=== PATIENT | female | born 1990 | race Caucasian/White ===

== ENCOUNTER 2019-06-04 12:48 | Emergency (ER) | payer MEDICAID ==
--- NOTE | 2019-06-04 13:05 | Emergency Department Record ---
History of Present Illness - General Chief Complaint: Chest Pain Stated Complaint: CHEST PAIN Time Seen by Provider: 06/04/19 12:59 Source: Patient Mode of Arrival: Ambulatory Limitations: No limitations - History of Present Illness Initial Comments: The patient is here due to R upper Cp for one day. The onset was around 7pm last evening. The patient states she was at home when she noticed sharp stabbing R upper chest pain that intermittently radiates to the R upper back. She does feels mildly SOB at times with it but has had no cough, L sided CP, fever, or sputum production. The patient states she has had similar pain in the past but not quite like this. She does state that deep breaths and chest rotation do increase the pain. The patient has no cardiac risk factors except for a hx of < 1/2 ppd of tobacco use off and on for 10 years and she is not on OCP's. The patient's LMP was 2 weeks ago. MD Complaint: Chest pain Onset/Timin -: Days(s) Onset: During rest Pain Location: Substernal Pain Radiation: Back Severity: Moderate Severity scale (1-10): 8 Quality: Sharp Consistency: Constant Improves With: Nothing Worsens With: Nothing Treatments Prior to Arrival: None - Related Data Previous Rx's Medication Instructions Recorded Naproxen [Naprosyn] 250 mg PO BID #14 tablet 06/04/19 Allergies Allergy/AdvReac Type Severity Reaction Status Date / Time Penicillins Allergy RASH Verified 06/04/19 12:57 Travel Screening - Travel/Exposure Within Last 30 Days Have you traveled within the last 30 days?: No Review of Systems Constitutional: Denies: Chills, Fever Eyes: Denies: Eye discharge ENT: Denies: Congestion Respiratory: Denies: Cough, Dyspnea Cardiovascular: Reports: Chest pain. Denies: Arrhythmia, Dyspnea on exertion Endocrine: Denies: Fatigue Gastrointestinal: Denies: Abdominal pain Genitourinary: Denies: Dysuria Musculoskeletal: Denies: Arthralgia Skin: Denies: Bruising Past Medical History - SOCIAL HISTORY Smoking Status: Current every day smoker Alcohol Use: None Drug Use: None - RESPIRATORY Hx Respiratory Disorders: No - CARDIOVASCULAR Hx Cardio Disorders: No - NEURO Hx Neuro Disorders: No - GI Hx GI Disorders: No - Hx Genitourinary Disorders: No Comment:: PCOS - ENDOCRINE Hx Endocrine Disorders: No - MUSCULOSKELETAL Hx Musculoskeletal Disorders: No - PSYCH Hx Psych Problems: No - HEMATOLOGY/ONCOLOGY Hx Hematology/Oncology Disorders: No Family Medical History Any Significant Family History?: No Physical Exam - General General Appearance: Alert, Oriented x3, Cooperative, No acute distress - Head Head exam: Atraumatic, Normocephalic, Normal inspection - Eye Eye exam: Normal appearance, PERRL - ENT Throat exam: Normal inspection. negative: Tonsillar erythema, Tonsillar exudate - Neck Neck exam: Normal inspection, Full ROM. negative: Tenderness - Respiratory Respiratory exam: Normal lung sounds bilaterally, Chest wall tenderness (The CP is 100% reproducible with palpation to the R upper T3-4 costochondral joints. ). negative: Respiratory distress - Cardiovascular Cardiovascular Exam: Regular rate, Normal rhythm, Normal heart sounds - GI/Abdominal GI/Abdominal exam: Soft, Normal bowel sounds. negative: Tenderness - Extremities Extremities exam: Normal inspection, Full ROM, Normal capillary refill. negative: Tenderness Image of Full Body: 1 - Area of pain and reproducible tenderness. Course Vital Signs 06/04/19 12:49 Temperature 97.7 F Pulse Rate 62 Respiratory 20 Rate Blood Pressure 140/88 Pulse Ox 99 - Reevaluation(s) Reevaluation #1: The patient is doing very well at this time. She is basically pain free at this time and only has the pain with deep breaths or chest twisting to the R. I strongly doubt any serious cardiac or pulmonary etiology of the pain. The patient is young and healthy and does not have any significant cardiac risk factors. The pain is clearly reproducible and she has a Heart Score of 0 so I do not believe she needs an inpatient cardiac evaluation. I also doubt she has a PE due to the fact she has no risk factors and she is Wells Criteria Low Prob and PERC Neg. Additionally she has a neg D-dimer. She is to take Naprosyn for pain and see a family doctor later this week for recheck. 06/04/19 14:14 Medical Decision Making - Data Complexity MDM Data: Labs Ordered and/or Reviewed, X-Ray Ordered and/or Reviewed, EKG Ordered and/or Reviewed - Lab Data Result diagrams: 06/04/19 13:15 06/04/19 13:15 - EKG Data -: EKG Interpreted by Me EKG: No Acute Changes, Normal EKG - Radiology Data Radiology results: Report reviewed (CXR: Neg.) Disposition Disposition: Discharge Clinical Impression: Chest wall pain Disposition: Home, Self-Care Condition: (2) Stable Instructions: Chest Wall Pain (ED) Additional Instructions: Please stop smoking and take the Naprosyn for pain. Please see your family d octor for recheck later this week. Return to the ER for any worsening symptoms, pain, fever, L sided chest pain or any trouble breathing. Prescriptions: Naproxen [Naprosyn] 250 mg PO BID #14 tablet Forms: Patient Portal Access Time of Disposition: 14:19 Quality - Quality Measures Quality Measures: N/A - Blood Pressure Screening View Details: Yes Does Patient Have Any of the Following: No Blood Pressure Classification: Hypertensive Reading Systolic Measurement: 122 Diastolic Measurement: 90 Screening for High Blood Pressure: < First Hypertensive BP, F/U Documented > [G8950] First Hypertensive Follow-up Interventions: Referral to alternative/primary care provider.
[2019-06-04] MEDS ORDERED: KETOROLAC 30 MG/ML VIAL IVP ONE (13:11)
[2019-06-04 13:26] LABS: ABSOLUTE NEUTROPHIL COUNT 3.49; HEMATOCRIT 38.9 % (35.0-47.0); HEMOGLOBIN 13.1 gm/dl (11.6-16.0); MEAN CELL VOLUME 94.4 fl (81-97); MEAN CORPUSCULAR HEMOGLOBIN 31.8 pg (27-33); MEAN CORPUSCULAR HGB CONC 33.7 g/dl (32-36); MEAN PLATELET VOLUME 9.9 fl (7.4-10.4); PLATELET COUNT 250 K/uL (130-400); RED BLOOD COUNT 4.12 M/uL (3.80-5.40); RED CELL DISTRIBUTION WIDTH 12.3 % (11.5-14.5); WHITE BLOOD COUNT W/O DIFF 6.4 K/uL (4.2-12.2)
[2019-06-04 13:37] LABS: PLATELET ESTIMATE NORMAL (NORMAL)
[2019-06-04 13:38] LABS: BLOOD UREA NITROGEN 10 mg/dL (6-20); CREATININE 0.6 mg/dL (0.5-0.9); EST GLOMERULAR FILTRATION RATE > 60 mL/min
[2019-06-04 13:39] LABS: TOTAL PROTEIN 6.5 g/dL (6.6-8.7)
[2019-06-04 13:41] LABS: GLUCOSE,RANDOM 87 mg/dL (74-109)
[2019-06-04 13:43] LABS: ALB/GLOB RATIO 1.7 (1.1-1.8); ALBUMIN 4.1 g/dL (4.0-5.0); ALT/SGPT 10 U/L (<33); AST/SGOT 11 U/L (10.0-35.0)
[2019-06-04 13:44] LABS: ALKALINE PHOSPHATASE 65 U/L (35-104)
--- NOTE | 2019-06-05 09:32 | RADIOLOGY REPORT ---
EXAM: CHEST, TWO VIEWS HISTORY: CHEST PAIN RADIATING INTO BACK. TECHNIQUE: Upright PA and lateral views of the chest were obtained. Comparison: None. FINDINGS: The heart is not enlarged. No pulmonary venous hypertension is seen. The lungs and pleural spaces are clear. No acute osseous abnormality. Mild levoconvex curvature of the upper thoracic spine. IMPRESSION: 1. NO RADIOGRAPHIC EVIDENCE OF ACUTE CARDIOPULMONARY DISEASE. 2. MILD LEVOCONVEX CURVATURE OF THE UPPER THORACIC SPINE. JOB NUMBER: [id number] [facility]
== END 2019-06-04 14:32 | disposition home or self-care (01) ==
LOC: ER 12:48
DX: R07.89 Other chest pain (principal); F17.210 Nicotine dependence, cigarettes, uncomplicated
CPT/HCPCS: 71046; 80053; 84484; 85027; 85379; 93005; 93010; 96374; 99284; 99285; J1885

== ENCOUNTER 2019-12-13 16:51 | Emergency (ER) | payer MEDICAID ==
--- NOTE | 2019-12-13 17:03 | Emergency Department Record ---
History of Present Illness - General Chief Complaint: Abdominal Pain Stated Complaint: RT SIDE PELVIC PAIN Time Seen by Provider: 12/13/19 17:02 Source: Patient Mode of Arrival: Ambulatory Limitations: No limitations - History of Present Illness Initial Comments: The patient is here due to pelvic pain on the R side for 2 weeks. The pain did get worse today and the patient did have a positive home test a few days ago. There has been no vomiting, fever, dysuria, anorxia, vaginal discharge or bleeding. The patient has been twice with 2 children. MD Complaint: Abdominal pain Onset/Timin -: Week(s) - Related Data Previous Rx's Medication Instructions Recorded Metoclopramide HCl [Reglan] 10 mg PO TID #20 tablet 12/13/19 Allergies Allergy/AdvReac Type Severity Reaction Status Date / Time Penicillins Allergy RASH Verified 12/13/19 17:03 Review of Systems Constitutional: Denies: Chills, Fever Eyes: Denies: Eye discharge ENT: Denies: Congestion Respiratory: Denies: Cough, Dyspnea Past Medical History - SOCIAL HISTORY Smoking Status: Current every day smoker Drug Use: None - RESPIRATORY Hx Respiratory Disorders: No - CARDIOVASCULAR Hx Cardio Disorders: No - NEURO Hx Neuro Disorders: No - GI Hx GI Disorders: No - Hx Genitourinary Disorders: No Comment:: PCOS - ENDOCRINE Hx Endocrine Disorders: No - MUSCULOSKELETAL Hx Musculoskeletal Disorders: No - PSYCH Hx Psych Problems: No - HEMATOLOGY/ONCOLOGY Hx Hematology/Oncology Disorders: No Physical Exam - General General Appearance: Alert, Oriented x3, Cooperative, No acute distress - Head Head exam: Atraumatic, Normocephalic, Normal inspection - Eye Eye exam: Normal appearance, PERRL - Neck Neck exam: Normal inspection, Full ROM. negative: Tenderness - Respiratory Respiratory exam: Normal lung sounds bilaterally. negative: Respiratory distress - Cardiovascular Cardiovascular Exam: Regular rate, Normal rhythm, Normal heart sounds - GI/Abdominal GI/Abdominal exam: Soft, Tenderness (There is mild R lower abdominal/ pelvic tenderness with a very soft abdomen. Neg tender at McBurney's point.). negative: Distended, Guarding, Rebound, Rigid - Extremities Extremities exam: Normal inspection, Full ROM, Normal capillary refill. negative: Tenderness Course - Reevaluation(s) Reevaluation #1: The patient is doing very well at this time and is resting comfortably. I did discuss the US with the patient and did stress the need for F/U with [facility] due to the early and L ovarian cyst. The cyst is on the L but pushing everything over to the R. The patient did go to [facility] for her last child and will call there for an appointment. 12/13/19 18:42 Medical Decision Making - Data Complexity MDM Data: Labs Ordered and/or Reviewed, X-Ray Ordered and/or Reviewed - Lab Data Result diagrams: 12/13/19 17:08 12/13/19 17:08 - Radiology Data Radiology results: Report reviewed (Pelvic US: 9W3D IUP, 4.9 CM L Ovarian cyst, O/W neg.) Disposition Disposition: Discharge Clinical Impression: Ovarian cyst affecting in first trimester, antepartum Disposition: Home, Self-Care Condition: (2) Stable Instructions: Abdominal Pain (ED) Additional Instructions: Please take Tylenol for pain and please see your OB doctor at [facility]. Use Reglan for nausea and please return to the ER for any worsening symptoms. Prescriptions: Metoclopramide HCl [Reglan] 10 mg PO TID #20 tablet Forms: Patient Portal Access Time of Disposition: 18:47 Quality - Quality Measures Quality Measures: N/A - Blood Pressure Screening View Details: Yes Does Patient Have Any of the Following: No Blood Pressure Classification: Hypertensive Reading Systolic Measurement: 123 Diastolic Measurement: 95 Screening for High Blood Pressure: < First Hypertensive BP, F/U Documented > [G8950] First Hypertensive Follow-up Interventions: Referral to alternative/primary care provider.
[2019-12-13 17:24] LABS: ABSOLUTE NEUTROPHIL COUNT 4.78; BASO % 0.4 % (0-6); EOS % 3.2 % (0-6); GRAN % 67.1 % (47-80); HEMATOCRIT 37.9 % (35.0-47.0); HEMOGLOBIN 13.1 gm/dl (11.6-16.0); LYMPH % 22.8 % (16-45); MEAN CELL VOLUME 92.9 fl (81-97); MEAN CORPUSCULAR HEMOGLOBIN 32.1 pg (27-33); MEAN CORPUSCULAR HGB CONC 34.6 g/dl (32-36); MEAN PLATELET VOLUME 9.7 fl (7.4-10.4); MONO % 6.5 % (0-9); PLATELET COUNT 306 K/uL (130-400); RED BLOOD COUNT 4.08 M/uL (3.80-5.40); RED CELL DISTRIBUTION WIDTH 11.8 % (11.5-14.5); WHITE BLOOD COUNT W/O DIFF 7.1 K/uL (4.2-12.2)
[2019-12-13 17:27] LABS: BLOOD UREA NITROGEN 4 mg/dL (6-20); CREATININE 0.5 mg/dL (0.5-0.9); EST GLOMERULAR FILTRATION RATE > 60 mL/min
[2019-12-13 17:29] LABS: GLUCOSE,RANDOM 121 mg/dL (74-109)
[2019-12-13 18:03] LABS: URINE APPEARANCE CLEAR; URINE BILIRUBIN NEGATIVE (NEGATIVE); URINE BLOOD NEGATIVE (NEGATIVE); URINE COLOR YELLOW; URINE GLUCOSE (UA) NEGATIVE (NEGATIVE); URINE KETONE NEGATIVE (NEGATIVE); URINE LEUKOCYTE ESTERASE NEGATIVE (NEGATIVE); URINE NITRITE NEGATIVE (NEGATIVE); URINE PROTEIN NEGATIVE (NEGATIVE)
[2019-12-13] MEDS ORDERED: ACETAMINOPHEN 325 MG TAB PO ONE (18:08)
--- NOTE | 2019-12-13 18:29 | ULTRASOUND REPORT ---
EXAMINATION: Ultrasound Uterus Less Than 14 Weeks EXAM DATE: 12/13/2019 6:15 PM TECHNIQUE: Transabdominal and transvaginal ultrasound imaging of the pelvis was performed. Images we re recorded and stored on PACS. INDICATION: R sided pelvic pain with possible . COMPARISON: None. FINDINGS: Location: Intrauterine. Gestational sac: Normal. Yolk sac: Present pole: Present Embryo heart rate: 176 BPM. Normal. Placenta: Too early to evaluate.. position: Early gestation, not applicable. Gestation: Vall[place]res . Amniotic fluid: Normal volume. Biometry: [place]-rump length: 2.2 cm. 8 weeks 6 days. SILVANA 07/14/2020 Mean gestational sac size: Not applicable Clinical gestational age from LMP: 9 weeks, 3 days. SILVANA: 07/18/2020 Best gestational age determined by LMP. Maternal Pelvis: Uterus: No abnormality in the visualized uterus. Cervix: Unremarkable cervical, transabdominal technique. Right ovary: Normal.. 2.7 x 1.8 x 3.2 cm. Left ovary: Anechoic unilocular left ovarian cyst measures up to 4.9 cm in size consistent with a be nign functional cyst.. 6.1 x 5.0 x 6.5 cm. Cul-de-sac: Unremarkable. IMPRESSION: 1. Single intrauterine of 9 weeks, 3 days gestational age by LMP. SILVANA: 07/18/2020 2. Benign 4.9 cm functional cyst of the left ovary. Dictated by: Mj Cochran MD on 12/13/2019 6:24 PM. .
== END 2019-12-13 18:51 | disposition home or self-care (01) ==
LOC: ER 16:51
DX: O34.81 Maternal care for other abnormalities of pelvic organs, first trimester (principal); N83.292 Other ovarian cyst, left side; R11.0 Nausea; Z3A.09 9 weeks gestation of pregnancy; O99.331 Smoking (tobacco) complicating pregnancy, first trimester; F17.210 Nicotine dependence, cigarettes, uncomplicated
CPT/HCPCS: 76801; 76817; 80048; 81003; 84702; 84703; 85025; 99284